=== PATIENT | male | born 1980 | race African-American/Black ===

== ENCOUNTER 2017-08-23 06:25 | Observation (INO) ==
[2017-08-23] MEDS ORDERED: CATAPRES PO STA (06:43)
[2017-08-23] MEDS ORDERED: NORVASC PO STA (06:43)
[2017-08-23] MEDS ORDERED: NORCO 7.5-325 PO STA (06:44)
--- NOTE | 2017-08-23 06:46 | ED.PDOC ---
General ED Provider: Dr. SANDY STANLEY-ER Chief Complaint: Hypertension Stated Complaint: my bp has been up over a week with right sided mireles Time Seen by Physician: 06:45 Mode of Arrival: Walk-In Information Source: Patient, Family Exam Limitations: No limitations Nursing and Triage Documentation Reviewed and Agree: Yes Cardiovascular Complaint Exam - Hypertension Complaint/Exam Onset/Duration: one week Symptoms Are: Still present Timing: Intermittent Reported B/P Prior to Arrival: 170/100 Aggravating: Reports: None Alleviating: Reports: None Associated Signs and Symptoms: Reports: Headache. Denies: Chest pain, Vision changes, Anxiety, Recent stress, Numbness, Tingling, Weakness, Dizziness, Short of air, Swelling Related History: Reports: Current Leonides Inhibitors Related Surgical History: Reports: None Cardiac Risk Factors: Reports: Hypertension Recent Change in Medications: No A/V Nicking: No Papilledema Present: No JVD Present: No Carotid Bruit Present: No Femoral Pulses Bounding: Yes Differential Diagnoses: Hypertension Quality Indicator For Non-Traumatic Chest Pain/Syncope: EKG Performed Review of Systems - Review Of Systems Constitutional: Reports: No symptoms Eyes: Reports: No symptoms Ears, Nose, Mouth, Throat: Reports: No symptoms Respiratory: Reports: No symptoms Cardiac: Reports: No symptoms GI: Reports: No symptoms : Reports: No symptoms Musculoskeletal: Reports: No symptoms Skin: Reports: No symptoms Neurological: Reports: Headache Endocrine: Reports: No symptoms Hematologic/Lymphatic: Reports: No symptoms All Other Systems: Reviewed and Negative Past Medical History - Past Medical History Previously Healthy: Yes Endocrine: Reports: None Cardiovascular: Reports: Hypertension Respiratory: Reports: Asthma Hematological: Reports: None Gastrointestinal: Reports: None Genitourinary: Reports: None Neuro/Psych: Reports: None Musculoskeletal: Reports: Unknown Cancer: Reports: None - Surgical History General Surgical History: Reports: Cholecystectomy - Family History Family History: Reports: Unknown - Social History Smoking Status: Current every day smoker, Heavy tobacco smoker Hx Substance Use: No Alcohol Screening: None - Immunizations Tetanus Shot up to Date: Yes Physical Exam - Physical Exam Appearance: Well-appearing, No pain distress, Well-nourished Pain Distress: Mild Eyes: JUANITA, EOMI, Conjunctiva clear ENT: Ears normal, Nose normal, Oropharynx normal Neck: Supple Respiratory: Airway patent Cardiovascular: RRR, Pulses normal, No rub, No murmur GI/: Soft, Nontender, No masses, Bowel sounds normal, No Organomegaly Musculoskeletal: Normal strength, ROM intact, No edema, No calf tenderness Skin: Warm, Dry, Normal color Neurological: Sensation intact, Motor intact, Reflexes intact, Cranial nerves intact, Alert, Oriented Psychiatric: Affect appropriate Physician Notification - Case Discussed Physician Notified: dr singleton Time of Notification: 07:00 Critical Care Note - Critical Care Note Total Time (mins): 0 Course - Course Hematology/Chemistry: 08/24/17 05:04 08/24/17 05:04 Orders, Labs, Meds: Lab Review 08/23/17 08/23/17 08/23/17 06:50 06:50 06:50 WBC 7.97 RBC 5.99 Hgb 13.1 L Hct 41.6 L MCV 69.4 L MCH 21.9 L MCHC 31.5 L RDW Coeff of Estefani 16.1 H Plt Count 301 Immature Gran % (Auto) 0.3 Neut % (Auto) 58.1 Lymph % (Auto) 29.9 [place] % (Auto) 6.8 Eos % (Auto) 4.4 Baso % (Auto) 0.5 Immature Gran # (Auto) 0.0 Neut # 4.6 Lymph # 2.4 Ritchie # 0.5 Eos # 0.4 Baso # 0.0 Sodium 139 Potassium 3.8 Chloride 103 Carbon Dioxide 29 Anion Gap 10.8 BUN 12 Creatinine 1.08 Estimated GFR (MDRD) 93.00 BUN/Creatinine Ratio 11.11 Glucose 110 H Calcium 9.4 Total Bilirubin 0.37 AST 19 ALT 29 Alkaline Phosphatase 86 Total Creatine Kinase 268 CK-MB (CK-2) 2.8 CK-MB (CK-2) % 1.38002 Troponin I 0.0100 Total Protein 7.6 Albumin 3.5 Globulin 4.1 Albumin/Globulin Ratio 0.85 Triglycerides 151 H Cholesterol 189 LDL Cholesterol, Calc 128 VLDL Cholesterol 30 HDL Cholesterol 31 L Cholesterol/HDL Ratio 6.1 TSH 1.739 Urine Color Urine Clarity Urine pH Ur Specific [place] Urine Protein Urine Glucose (UA) Urine Ketones Urine Blood Urine Nitrite Urine Bilirubin Urine Urobilinogen Ur Leukocyte Esterase Urine Opiates Screen Ur Oxycodone Screen Urine Methadone Screen Ur Propoxyphene Screen Ur Barbiturates Screen U Tricyclic Antidepress Ur Phencyclidine Scrn Ur Amphetamine Screen U Methamphetamines Scrn U Benzodiazepines Scrn Urine Cocaine Screen U Cannabinoids Screen 08/23/17 08/23/17 08:00 08:02 WBC RBC Hgb Hct MCV MCH MCHC RDW Coeff of Estefani Plt Count Immature Gran % (Auto) Neut % (Auto) Lymph % (Auto) [place] % (Auto) Eos % (Auto) Baso % (Auto) Immature Gran # (Auto) Neut # Lymph # Ritchie # Eos # Baso # Sodium Potassium Chloride Carbon Dioxide Anion Gap BUN Creatinine Estimated GFR (MDRD) BUN/Creatinine Ratio Glucose Calcium Total Bilirubin AST ALT Alkaline Phosphatase Total Creatine Kinase CK-MB (CK-2) CK-MB (CK-2) % Troponin I Total Protein Albumin Globulin Albumin/Globulin Ratio Triglycerides Cholesterol LDL Cholesterol, Calc VLDL Cholesterol HDL Cholesterol Cholesterol/HDL Ratio TSH Urine Color Yellow Urine Clarity Clear Urine pH 7.0 Ur Specific [place] 1.015 Urine Protein Negative Urine Glucose (UA) Negative Urine Ketones Negative Urine Blood Negative Urine Nitrite Negative Urine Bilirubin Negative Urine Urobilinogen 1.0 Ur Leukocyte Esterase Negative Urine Opiates Screen Negative Ur Oxycodone Screen Negative Urine Methadone Screen Negative Ur Propoxyphene Screen Negative Ur Barbiturates Screen Negative U Tricyclic Antidepress Negative Ur Phencyclidine Scrn Negative Ur Amphetamine Screen Negative U Methamphetamines Scrn Negative U Benzodiazepines Scrn Negative Urine Cocaine Screen Negative U Cannabinoids Screen Negative Orders Category Date Time Status ADMIT PATIENT INPATIENT .TO [facility] (MONITORED BED) ADMISSION 08/23/17 08: 12 Inactive EKG-(ED ONLY) Stat CARDIO 08/23/17 06:42 Completed EKG-(IP & OP ONLY) DAILY CARDIO 08/24/17 06:00 Completed ACTIVITY .BR with BRP CARE 08/23/17 08:12 Completed BLOOD GLUCOSE MONITORING ACCUCHECK Q6H CARE 08/23/17 08:12 Active TELEMETRY MONITORING TELE CARE 08/23/17 08:13 Active VITAL SIGNS Q8HR CARE 08/23/17 08:12 Completed Global Technical Writer [ED ROOTER OPERATOR APPLIED] .ONCE EMERGENCY 08/23/17 06:43 Active CBC W/ AUTO DIFF DAILY@0600 LAB 08/24/17 05:04 Completed CBC W/ AUTO DIFF Stat LAB 08/23/17 06:50 Completed COMPREHENSIVE METABOLIC PANEL DAILY@0600 LAB 08/24/17 05:04 Completed COMPREHENSIVE METABOLIC PANEL Stat LAB 08/23/17 06:50 Completed CREATINE KINASE Q8H LAB 08/23/17 14:40 Completed CREATINE KINASE Q8H LAB 08/23/17 22:15 Completed CREATINE KINASE Stat LAB 08/23/17 06:50 Completed TROPONIN I Q8H LAB 08/23/17 14:40 Completed TROPONIN I Q8H LAB 08/23/17 22:15 Completed TROPONIN I Stat LAB 08/23/17 06:50 Completed URINALYSIS C & S IF INDICATED Stat LAB 08/23/17 08:02 Completed Albuterol Sulfate [Proair Hfa] MEDS 08/23/17 08:14 Discontinued 1 puff IH 3-4XD PRN Amlodipine Besylate [Norvasc] MEDS 08/23/17 06:43 Discontinued 5 mg PO ONCE STA Clonidine HCl [Catapres] MEDS 08/23/17 06:43 Discontinued 0.1 mg PO ONCE STA Hydrocodone Bit/Acetaminophen [[place] 7.5-325] MEDS 08/23/17 06:44 Discontinued 1 tab PO ONCE STA Lisinopril [Zestril] MEDS 08/23/17 09:00 Discontinued 20 mg PO DAILY Lisinopril [Zestril] MEDS 08/23/17 08:14 Discontinued 40 mg PO ONCE STA Metoprolol Tartrate [Lopressor] MEDS 08/23/17 17:30 Discontinued 50 mg PO BIDWM Sodium Chloride 0.9% [Sodium Chloride] 1,000 ml MEDS 08/23/17 08:30 Discontinued IV 75 mls/hr CT HEAD W/O CONTRAST Stat RADS 08/23/17 06:43 Completed Medications Discontinued Medications Generic Name Dose Route Start Last Admin Trade Name Humbertoq PRN Reason Stop Dose Admin Acetaminophen/Hydrocodone Bitart 1 tab 08/23/17 06:44 08/23/17 06:51 [place] 7.5-325 PO 08/23/17 06:45 1 tab ONCE STA Administration Albuterol Sulfate 1 puff 08/23/17 08:14 Proair Hfa IH 3-4XD PRN Bronchospasm Amlodipine Besylate 5 mg 08/23/17 06:43 08/23/17 06:51 Norvasc PO 08/23/17 06:44 5 mg ONCE STA Administration Atorvastatin Calcium 20 mg 08/24/17 21:00 Lipitor PO BEDTIME [place] Clonidine 0.1 mg 08/23/17 06:43 08/23/17 06:51 Catapres PO 08/23/17 06:44 0.1 mg ONCE STA Administration Sodium Chloride 1,000 mls @ 75 mls/hr 08/23/17 08:30 08/23/17 23:00 Sodium Chloride IV 75 mls/hr .[id number] [place] Administration Lisinopril 40 mg 08/23/17 08:14 08/23/17 08:47 Zestril PO 08/23/17 08:15 40 mg ONCE STA Administration Lisinopril 20 mg 08/23/17 09:00 08/24/17 08:55 Zestril PO 20 mg DAILY [place] Administration Metoprolol Tartrate 50 mg 08/23/17 17:30 08/24/17 08:55 Lopressor PO 50 mg BIDWM [place] Administration Vital Signs: Temp Pulse Resp BP Pulse Ox 08/23/17 06:29 97.3 F L 75 20 166/107 H 98 BERHANE Risk Score BERHANE Risk Score: Risk Score Odds of by 30D 0 0.1 (0.1-0.2) 1 0.3 (0.2-0.3) 2 0.4 (0.3-0.5) 3 0.7 (0.6-0.9) 4 1.2 (1.0-1.5) 5 2.2 (1.9-2.6) 6 3.0 (2.5-3.6) 7 4.8 (3.8-6.1) Departure - Departure Time of Disposition: 23:11 Disposition: ADMITTED INPATIENT Discharge Problem: HTN (hypertension) Qualifiers: Hypertension type: unspecified Qualified Code(s): I10 - Essential (primary) hypertension Condition: Stable Pt referred to PMD for follow-up: Yes Allergies/Adverse Reactions: Allergies No Known Allergies Allergy (Verified 08/23/17 06:41) Disposition Discussed With: Other (per dr singleton)
[2017-08-23 06:55] LABS: BASOPHILS % (AUTO) 0.5 % (0.0-3.0); EOSINOPHILS # (AUTO) 0.4 K/ul (0.0-0.7); EOSINOPHILS % (AUTO) 4.4 % (0.0-7.0); HEMATOCRIT 41.6 % (42.0-52.0); HEMOGLOBIN 13.1 g/dl (14.0-18.0); IMMATURE GRANULOCYTE % (AUTO) 0.3 % (0.0-5.0); LYMPHOCYTES # (AUTO) 2.4 K/uL (0.60-3.4); LYMPHOCYTES % (AUTO) 29.9 (10.0-50.0); MEAN CORPUSCULAR HEMOGLOBIN 21.9 pg (27.0-31.0); MEAN CORPUSCULAR HGB CONC 31.5 (31.8-35.4); MEAN CORPUSCULAR VOLUME 69.4 fl (80.0-94.0); MONOCYTES # (AUTO) 0.5 K/uL (0.4-2.0); MONOCYTES % (AUTO) 6.8 (0-10); NEUTROPHILS # (AUTO) 4.6 K/ul (2.0-6.9); NEUTROPHILS % (AUTO) 58.1; PLATELET COUNT 301 10^3/uL (140-440); RED BLOOD COUNT 5.99 10^6/ul (4.70-6.10); WHITE BLOOD COUNT 7.97 K/ul (4.2-10.2)
[2017-08-23 07:32] LABS: ALBUMIN 3.5 g/dL (3.4-5.0); ALBUMIN/GLOBULIN RATIO 0.85; ANION GAP 10.8; BILIRUBIN,TOTAL 0.37 mg/dL (0.00-1.20); BUN/CREATININE RATIO 11.11; CALCIUM 9.4 mg/dL (8.2-10.2); CREATININE 1.08 mg/dL (0.60-1.10); POTASSIUM 3.8 mmol/L (3.5-5.1); TOTAL PROTEIN 7.6 g/dL (6.4-8.2); TROPONIN I 0.01 ng/ml (0.0000-0.4000)
--- NOTE | 2017-08-23 07:45 | CT ---
EXAM: CT BRAIN HISTORY: Headache, elevated blood pressure TECHNIQUE: CT brain without intravenous contrast. 5-mm axial sections with Reformations. COMPARISON: None FINDINGS: Brain is unremarkable without distinct evidence of hemorrhage or large vessel distribution recent i schemic infarction. There is no suggestion of acute hydrocephalus or subdural fluid collection. No mass or mass effect. Cranium is within normal limits. Mastoid air cells are aerated. The visualized paranasal sinuses re veal partial opacity within the sphenoid sinuses. IMPRESSION: 1. No acute intracranial process. 2. Chronic sphenoid sinusitis.
[2017-08-23 08:10] LABS: CREATINE KINASE MB 2.8 ng/ml (0.0-3.6)
[2017-08-23] MEDS ORDERED: ZESTRIL PO STA (08:14)
[2017-08-23] MEDS ORDERED: PROAIR HFA IH PRN (08:14)
[2017-08-23] MEDS ORDERED: NON-FORMULARY MEDICATION (Lisinopril [Lisinopril] 20 MG) PO SCH ×22 (08:15)
[2017-08-23 08:18] LABS: BILIRUBIN,URINE Negative (NEGATIVE); KETONES,URINE Negative (NEGATIVE); LEUKOCYTE ESTERASE ,URINE Negative (NEGATIVE); NITRITE,URINE Negative (NEGATIVE); PROTEIN,URINE Negative (NEGATIVE); URINE, BLOOD Negative (NEGATIVE)
[2017-08-23 08:22] LABS: ADD URINE MICROSCOPIC NO
[2017-08-23 09:32] LABS: CHOL/HDL RATIO 6.1 (4.5-6.4)
[2017-08-23 09:50] VITALS: BMI 57.5
[2017-08-23] MEDS: ZESTRIL PO SCH (10:07)
[2017-08-23] MEDS: SODIUM CHLORIDE 1,000 ML IV SCH ×2 (10:45→23:00)
[2017-08-23 15:20] LABS: CREATINE KINASE 194 U/L
[2017-08-23 15:21] LABS: CREATINE KINASE MB 2.1 ng/ml (0.0-3.6)
[2017-08-23 16:36] LABS: COCAIN SCREEN,URINE NEGATIVE (NEGATIVE)
[2017-08-23] MEDS: LOPRESSOR PO SCH (16:53)
[2017-08-23 23:12] LABS: TROPONIN I 0.011 ng/ml (0.0000-0.4000)
[2017-08-23 23:17] LABS: CREATINE KINASE MB 2.1 ng/ml (0.0-3.6)
[2017-08-24 05:04] LABS: HEMATOCRIT 39.9 % (42.0-52.0); HEMOGLOBIN 12.6 g/dl (14.0-18.0); MEAN CORPUSCULAR HGB CONC 31.6 (31.8-35.4); MEAN CORPUSCULAR VOLUME 69.6 fl (80.0-94.0); PLATELET COUNT 281 10^3/uL (140-440); RED BLOOD COUNT 5.73 10^6/ul (4.70-6.10); WHITE BLOOD COUNT 8.65 K/ul (4.2-10.2)
[2017-08-24 05:16] LABS: ANISOCYTOSIS NOT PRESENT (NOT PRESENT)
[2017-08-24 05:37] LABS: ALBUMIN 3.3 g/dL (3.4-5.0); ALBUMIN/GLOBULIN RATIO 0.87; ANION GAP 12.7; BILIRUBIN,TOTAL 0.38 mg/dL (0.00-1.20); CALCIUM 9.3 mg/dL (8.2-10.2); POTASSIUM 3.7 mmol/L (3.5-5.1); TOTAL PROTEIN 7.1 g/dL (6.4-8.2)
[2017-08-24] MEDS: LOPRESSOR PO SCH (08:55)
[2017-08-24] MEDS: ZESTRIL PO SCH (08:55)
[2017-08-24 09:40] VITALS: BP 133/85; TEMP 98.2
[2017-08-24] MEDS ORDERED: LIPITOR PO SCH (21:00)
--- NOTE | 2017-08-26 09:13 | PN ---
DATE OF SERVICE: 08/24/17 SUBJECTIVE: The patient is admitted with hypertension uncontrolled. The patient is started on Lisinopril and Metoprolol. Blood pressure has been doing good. Cholesterol panel showed triglyceride 151, total cholesterol 189. The patient says that he ran out of medication and is the reason he was not taking. Right now he has no headache or blurred vision. He is doing fine. REVIEW OF SYSTEMS: CONSTITUTIONAL: No fever, no chills. HEENT: Normal. ENDOCRINE: No weight gain, no weight loss. CVS: No angina symptoms. No CHF symptoms. No palpitations. No atypical chest pain for CAD. No shortness of breath. No PND, no orthopnea. RESPIRATORY: No cough, no hemoptysis. GI: No nausea, no vomiting. No abdominal pain. : No hematuria. No polyuria. MUSCULOSKELETAL:. No joint swelling. PSYCHIATRIC: Not anxious. No depression. No suicidal thoughts. No homicidal thoughts. SKIN: Intact. No rash. PHYSICAL EXAMINATION: V/S: BP 124/72, respiratory rate 18, heart rate 62, temperature 97.6, saturation 98. GENERAL: Morbidly obese male lying in bed not in any distress. HEENT: Normocephalic, atraumatic. Mucosa dry. NECK: Supple. No JVD, no carotid bruit. No lymphadenopathy. LUNGS: Clear to auscultation. No rales or rhonchi. HEART: S1, S2 normal. No S3. No murmur, gallop or regurgitation. ABDOMEN: Soft, nontender. Bowel sounds active. No rigidity. No rebound or guarding. No CVA tenderness. EXTREMITIES: No clubbing, cyanosis or pedal edema. MUSCULOSKELETAL: No joint swelling. NEUROLOGIC: Awake, alert, oriented times three. No focal deficit. LYMPHATIC: No lymph nodes palpable. SKIN: Intact. LABS: Sodium 140, potassium 3.7, chloride 106, bicarb 25, BUN 11, creatinine 1.0, glucose 125. White count 8.65, hemoglobin 12.6, hematocrit 39.9, platelet count 281. ASSESSMENT: 1. STATUS POST HYPERTENSIVE URGENCY SECONDARY TO NONCOMPLIANCE. 2. ANEMIA, STABLE. 3. MORBID OBESITY. 4. DYSLIPIDEMIA. 5. HISTORY OF MILD ASTHMA. 6. HISTORY OF CHOLECYSTECTOMY. 7. HISTORY OF SICKLE CELL TRAIT. 8. NICOTINE USE. PLAN: 1. Discharge the patient home. 2. Medication compliance discussed. 3. Statins and the risk of myalgia has been been discussed. 4. Weight loss, diet control discussed. 5. Smoking and asthma exacerbation have been discussed and he verbalized understanding. TIME SPENT: More than 35 minutes. MICHELET
--- NOTE | 2017-08-26 09:29 | SSS ---
DATE OF SERVICE: 08/24/17 (DISCHARGED - ADMITTED 08/23/17) HISTORY OF PRESENT ILLNESS: The patient came to the emergency room as he has been hurting in the head and having some visual problems. He ran out of his blood pressure medication and was having some jaw pain. He was seen by Dr. Cleveland initially and he gave Clonidine. Blood pressure did drop from 166/108 but in view of headache and visual changes, CT scan was done which was negative but the patient at that time was admitted to observation for controlling blood pressure. PAST MEDICAL HISTORY: 1. Ear surgery for frequent ear infection 2. Hypertension 3. Mild persistent asthma 4. Morbid obesity 5. Nicotine use 6. Sickle cell trait PAST SURGICAL HISTORY: 1. Gallbladder surgery 2. Ear surgery PERSONAL HISTORY: Does smoke and drinks alcohol occasionally. . He has a child. FAMILY HISTORY: Significant for diabetes and heart problems. ALLERGIES: NKDA MEDICATIONS: (Home) He is supposed to be on: 1. Metoprolol 2. Albuterol 3. Lisinopril but ran out of Lisinopril and Metoprolol REVIEW OF SYSTEMS: CONSTITUTIONAL: No night sweats. No fatigue, malaise, lethargy. No fever or chills. HEENT: Eyes: No visual changes. No eye pain. No eye discharge. ENT: No runny nose. No epistaxis. No sinus pain. No sore throat. No odynophagia. No ear pain. No congestion. RESPIRATORY: No cough, no congestion. No hemoptysis. No shortness of breath. CARDIOVASCULAR: No angina symptoms. No CHF symptoms. No atypical chest pain for CAD. No palpitations. No orthopnea. GASTROINTESTINAL: No abdominal pain. No nausea or vomiting. No diarrhea or constipation. No hematemesis. No hematochezia. GENITOURINARY: No dysuria. No hematuria. No obstructive symptoms. No discharge. No pain. No significant abnormal bleeding. MUSCULOSKELETAL: No musculoskeletal pain. No joint swelling. NEUROLOGICAL: Awake, alert, oriented to time, place and person. Blurred vision. Headache, jaw pain. No neck pain. No syncope. No seizures. No dizziness. PSYCHIATRIC: Not anxious. No depression. No suicidal thoughts. No homicidal thoughts. SKIN: No rash. No lesions. No wounds. ENDOCRINE: No unexplained weight loss. No weight gain. HEMATOLOGIC/LYMPHATIC: No anemia. No purpura. No petechiae. No prolonged or excessive bleeding. No palpable lymph nodes. PHYSICAL EXAMINATION: GENERAL: The patient is morbidly obese male lying in bed in no distress. VITAL SIGNS: BP 124/72, respiratory rate 18, heart rate 62, temperature 98, saturation 98 on room air. HEENT: Head normocephalic, atraumatic. Eyes: Extraocular muscles are intact. Pupils are equal, round and reactive to light and accommodation. Ears: No lesions. Nose appeared normal. Throat: No exudate or erythema. NECK: Supple. No JVD, no carotid bruit. No lymphadenopathy or thyromegaly. LUNGS: Clear to auscultation. Percussion note normal. Chest symmetrical. HEART: S1, S2, no S3. No murmurs. No cyanosis or clubbing. No ascites. Pulses: Dorsalis pedis and posterior tibial pulses +1 to +2 both sides. ABDOMEN: Soft. Nontender. Bowel sounds active. No CVA tenderness. No mass felt. EXTREMITIES: No edema. Full range of motion of all extremities, equal. NEUROLOGIC: No focal deficit. Cranial nerves II through XII are grossly intact. No headache, no double vision or headache. SKIN: Not dry. Intact. Turgor - normal. LYMPHATIC: No palpable lymph nodes/no lymphedema. MUSCULOSKELETAL: Normal joints with no swelling. Muscle tone is normal. Old/present records reviewed Office records reviewed. LABS/EKG'S/X-RAY/ECHO/ABG: White count 7.97, hemoglobin 13.1, hematocrit 41.6, platelet count 301. Sodium 139, potassium 3.8, chloride 103, bicarb 29, BUN 12, creatinine 1.08. AST and ALT are normal. Three sets of cardiac enzymes are normal. PROGRESS NOTES: See EMR. BRIEF HOSPITAL COURSE: The patient is admitted to the hospital, started on Metoprolol Tartrate 50 b.i.d. and Lisinopril 40 mg p.o. daily which did control the patient's blood pressure. Total cholesterol was 189 and triglyceride 151. He did fine and did not have any complications. At that time, the patient planned for discharge. FINAL DIAGNOSES: 1. HYPERTENSIVE URGENCY BECAUSE OF NONCOMPLIANCE 2. MORBID OBESITY 3. HYPERGLYCEMIA 4. DYSLIPIDEMIA 5. CHOLECYSTECTOMY 6. NICOTINE USE PLAN: 1. Discharge the patient home. 2. Lifestyle modification, weight loss, low carbohydrate diet. 3. Keep monitoring blood pressure. 4. Uncontrolled blood pressure and risk of stroke and intracranial bleed have been discussed. 5. Medication compliance discussed. TIME SPENT: More than 55 minutes today. TIME SPENT: More than 70 minutes. MTDD
== END 2017-08-24 13:59 | disposition home or self-care (01) ==
LOC: ED 06:25 → INTOOBSV 08:40 → MEDSURG B 08:40
PROVIDERS: ADMIT Emergency Medicine; ATTEND Emergency Medicine
DX: I16.0 Hypertensive urgency (principal); T46.5X6A Underdosing of other antihypertensive drugs, initial encounter; R51 Headache; H53.9 Unspecified visual disturbance; R68.84 Jaw pain; D57.3 Sickle-cell trait; D64.9 Anemia, unspecified; E66.01 Morbid (severe) obesity due to excess calories; R73.9 Hyperglycemia, unspecified; E78.5 Hyperlipidemia, unspecified; F17.200 Nicotine dependence, unspecified, uncomplicated; Z90.49 Acquired absence of other specified parts of digestive tract; Z87.09 Personal history of other diseases of the respiratory system
CPT/HCPCS: 36415; 80053; 80061; 80306; 81001; 82550; 82553; 82962; 84443; 84484; 85007; 85025; 93005; 93010; 97802; 99284

== ENCOUNTER 2019-05-03 08:38 | Emergency (ER) ==
[2019-05-03 08:46] VITALS: TEMP 97.4
[2019-05-03 08:54] VITALS: BMI 60.3
[2019-05-03] MEDS ORDERED: ZESTRIL PO STA (08:59)
--- NOTE | 2019-05-03 10:14 | ED.PDOC ---
General ED Provider: Dr. NAHED VILLA Chief Complaint: Hypertension Stated Complaint: hypertension out of meds Time Seen by Physician: 09:00 (nurse present at all times nydia) Mode of Arrival: Walk-In Information Source: Patient Exam Limitations: No limitations Nursing and Triage Documentation Reviewed and Agree: Yes Does patient meet sepsis criteria?: No System Inflammatory Response Syndrome: Not Applicable Sepsis Protocol: For patient's 13 years and over: Temp is 96.8 and below OR 101 and greater Pulse >90 BPM Resp >20/minute Acutely Altered Mental Status Are patient's symptoms suggestive of a new infection, such as: -Pneumonia -Skin, Soft Tissue -Endocarditis -UTI -Bone, Joint Infection -Implantable Device -Acute Abdominal Infection -Wound Infection -Meningitis -Blood Stream Catheter Infection -Unknown Cardiovascular Complaint Exam - Hypertension Complaint/Exam Onset/Duration: 1 month out of meds Symptoms Are: Still present Timing: Constant Reported B/P Prior to Arrival: 170/100 Aggravating: Reports: None Alleviating: Reports: None Associated Signs and Symptoms: Denies: Chest pain, Vision changes, Anxiety, Recent stress, Headache, Numbness, Tingling, Weakness, Dizziness, Short of air, Swelling Related History: Reports: Current Leonides Inhibitors Related Surgical History: Reports: None Cardiac Risk Factors: Reports: Hypertension Recent Change in Medications: No A/V Nicking: No Papilledema Present: No JVD Present: No Carotid Bruit Present: No Femoral Pulses Bounding: No Differential Diagnoses: Hypertension, Hypertensive Urgency, Renal Disease Review of Systems - Review Of Systems Constitutional: Reports: No symptoms Eyes: Reports: No symptoms Ears, Nose, Mouth, Throat: Reports: No symptoms Respiratory: Reports: No symptoms Cardiac: Reports: No symptoms GI: Reports: No symptoms : Reports: No symptoms Musculoskeletal: Reports: No symptoms Skin: Reports: No symptoms Neurological: Reports: Headache Endocrine: Reports: No symptoms Hematologic/Lymphatic: Reports: No symptoms All Other Systems: Reviewed and Negative Past Medical History - Past Medical History Previously Healthy: Yes Endocrine: Reports: None Cardiovascular: Reports: Hypertension Respiratory: Reports: Asthma Hematological: Reports: None Gastrointestinal: Reports: None Genitourinary: Reports: None Neuro/Psych: Reports: None Musculoskeletal: Reports: Unknown Cancer: Reports: None - Surgical History General Surgical History: Reports: Cholecystectomy - Family History Family History: Reports: Unknown - Social History Smoking Status: Current every day smoker, Heavy tobacco smoker Hx Substance Use: No Alcohol Screening: Occasionally Physical Exam - Physical Exam Appearance: Well-appearing, No pain distress, Well-nourished Eyes: JUANITA, EOMI, Conjunctiva clear ENT: Ears normal, Nose normal, Oropharynx normal Respiratory: Airway patent, Breath sounds clear, Breath sounds equal, Respirations nonlabored Cardiovascular: RRR, Pulses normal, No rub, No murmur GI/: Soft, Nontender, No masses, Bowel sounds normal, No Organomegaly Musculoskeletal: Normal strength, ROM intact, No edema, No calf tenderness Skin: Warm, Dry, Normal color Neurological: Sensation intact, Motor intact, Reflexes intact, Cranial nerves intact, Alert, Oriented Psychiatric: Affect appropriate, Mood appropriate Interpretation - Department Sales Manager Rate: Normal Rhythm: Sinus Ectopy: None - EKG Interpretation Rate: Normal Rhythm: Sinus [place]: NL Re-Evaluation - Re-Evaluation Time of Re-Evaluation: 10:14 (no further headaches ) Status: Improved Vital Signs Stable: Yes Pain Level: 0 Appearance: NAD Lungs: Clear Skin: Warm and Dry Neuro: Alert and Oriented X3 CV: RRR Critical Care Note - Critical Care Note Total Time (mins): 0 Course - Course Hematology/Chemistry: 05/03/19 09:20 05/03/19 09:20 Orders, Labs, Meds: Lab Review 05/03/19 05/03/19 05/03/19 09:20 09:20 09:30 WBC 7.87 RBC 5.87 Hgb 12.9 L Hct 42.1 MCV 71.7 L MCH 22.0 L MCHC 30.6 L RDW Coeff of Estefani 16.4 H Plt Count 261 Immature Gran % (Auto) 0.4 Neut % (Auto) 65.7 Lymph % (Auto) 23.3 [place] % (Auto) 6.7 Eos % (Auto) 3.4 Baso % (Auto) 0.5 Immature Gran # (Auto) 0.0 Neut # (Auto) 5.2 Lymph # (Auto) 1.8 [place] # (Auto) 0.5 Eos # (Auto) 0.3 Baso # (Auto) 0.0 Sodium 140.6 Potassium 4.11 Chloride 106.6 Carbon Dioxide 26.2 Anion Gap 11.91 BUN 13.1 Creatinine 0.94 Estimated GFR (MDRD) 108.00 BUN/Creatinine Ratio 13.93 Glucose 104.0 Calcium 8.85 Total Bilirubin 0.44 AST 24.3 ALT 26.4 Alkaline Phosphatase 88.4 Total Protein 7.02 Albumin 4.09 Globulin 2.93 Albumin/Globulin Ratio 1.39 Urine Color Yellow Urine Clarity Clear Urine pH 6.0 Ur Specific [place] 1.020 Urine Protein Negative Urine Glucose (UA) Negative Urine Ketones Negative Urine Blood Negative Urine Nitrite Negative Urine Bilirubin Negative Urine Urobilinogen 1.0 Ur Leukocyte Esterase Negative Orders Category Date Time Status EKG-(ED ONLY) Stat CARDIO 05/03/19 09:03 Completed CBC W/ AUTO DIFF Stat LAB 05/03/19 09:20 Completed COMPREHENSIVE METABOLIC PANEL Stat LAB 05/03/19 09:20 Completed URINALYSIS C & S IF INDICATED Stat LAB 05/03/19 09:30 Completed Lisinopril [Zestril] MEDS 05/03/19 08:59 Discontinued 40 mg PO ONCE STA Medications Discontinued Medications Generic Name Dose Route Start Last Admin Trade Name Freq PRN Reason Stop Dose Admin Lisinopril 40 mg 05/03/19 08:59 05/03/19 09:28 Zestril PO 05/03/19 09:00 40 mg ONCE STA Administration Vital Signs: Temp Pulse Resp BP Pulse Ox 05/03/19 08:41 97.4 F L 61 16 172/106 H 96 BERHANE Risk Score BERHANE Risk Score: Risk Score Odds of by 30D 0 0.1 (0.1-0.2) 1 0.3 (0.2-0.3) 2 0.4 (0.3-0.5) 3 0.7 (0.6-0.9) 4 1.2 (1.0-1.5) 5 2.2 (1.9-2.6) 6 3.0 (2.5-3.6) 7 4.8 (3.8-6.1) Departure - Departure Time of Disposition: 10:14 Disposition: HOME SELF-CARE Discharge Problem: HTN (hypertension) Qualifiers: Hypertension type: unspecified Qualified Code(s): I10 - Essential (primary) hypertension Instructions: Hypertension (ED) Condition: Good Pt referred to PMD for follow-up: Yes IPMP verified?: No Additional Instructions: APPOINTMENT WITH ARASH SÁNCHEZ WednesdayApril AT 1:30 PM. CALL IF YOU NEED TO CHANGE IT. USE THE PILL BOX TO STAY ON TRACK WITH YOUR MEDS. Prescriptions: Lisinopril [Zestril] 40 mg PO DAILY 14 Days tablet Allergies/Adverse Reactions: Allergies No Known Allergies Allergy (Verified 05/03/19 08:40) Home Medications: Ambulatory Orders Lisinopril [Zestril] 40 mg PO DAILY 14 Days tablet 05/03/19
[2019-05-03] MEDS ORDERED: APRESOLINE PO STA (10:19)
[2019-05-03 10:34] VITALS: BP 139/81
== END 2019-05-03 10:32 | disposition home or self-care (01) ==
LOC: ED 08:38
DX: I10 Essential (primary) hypertension (principal); R51 Headache; Z91.14 Patient's other noncompliance with medication regimen; F17.210 Nicotine dependence, cigarettes, uncomplicated
CPT/HCPCS: 36415; 80053; 81001; 85025; 93005; 93010; 99283